=== PATIENT | female | born 1960 ===

== ENCOUNTER 2024-06-29 09:17 | Outpatient (AMB) | payer MEDICARE, MEDICAID, SELFPAY ==
--- NOTE | 2024-06-29 09:31 | PD.ORTHCLVIS ---
Vital signs 06/29/24 09:46 Height 1.47 m Height Method Stated Weight 95.765 kg Weight Measurement Method Standing Scale BMI 44.1 BP 121/73 Blood Pressure Source Automatic Cuff Blood Pressure Location Right Upper Arm Position Sitting Respiration 18 Pulse 75 Pulse Source Monitor Temp 97.5 F Temp Source Temporal Artery Scan Pulse Oximetry (%) 96 Oxygen Delivery Method Room Air Med/Allergies Allergies & Medications Allergies ampicillin Allergy (Verified 06/29/24 09:43) iron Allergy (Verified 06/29/24 09:43) naproxen [From Aleve] Allergy (Verified 06/29/24 09:43) Penicillins Allergy (Verified 06/29/24 09:43) Medication Reconciliation atorvastatin 20 mg tablet 20 mg PO QDAY 06/29/24 [History Confirmed 06/29/24] clopidogrel 75 mg tablet 75 mg PO QDAY 06/29/24 [History Confirmed 06/29/24] famotidine 20 mg tablet 20 mg PO QDAY 06/29/24 [History Confirmed 06/29/24] hydrochlorothiazide 25 mg tablet 25 mg PO QAM 06/29/24 [History Confirmed 06/29/24] lisinopril 40 mg tablet 40 mg PO QDAY 06/29/24 [History Confirmed 06/29/24] semaglutide 1 mg/dose (4 mg/3 mL) subcutaneous pen injector (Ozempic) 1 mg subcut QWEEK 06/29/24 [History Confirmed 06/29/24] sertraline 150 mg capsule 150 mg PO QDAY 06/29/24 [History Confirmed 06/29/24] Subjective Visit Visit for: new patient and knee (BILATERAL) Immunization / Flu Flu Vaccine in the Last 12 Months: Yes Flu Vaccine Exclusion Criteria: Already Received History of Present Illness Chief complaint: BILATERAL KNEE PAIN Date of injury / onset of symptoms: 08/2021 Patient is a pleasant 63-year-old female with bilateral knee pain worse on the left. The pains been ongoing for 2 years. She is tried anti-inflammatories as well as 3 to 4 injections. She reports the injections work about 3 months. She would like new injections today as they have been working Personal History Occupation: [employer] Hobbies: [employer] Pain Pain level (0-10): 6 Pain duration: WITH MOVEMENT Pain location: inside (medial) and outside (lateral) Pain quality: sharp Pain timing: increases with activity Associated signs & symptoms: stiffness Ambulatory data Ambulatory device: none Treatments Improvement with previous injections: No Improvement with PT: No Improvement with NSAIDS: no Review of Systems Review of Systems: All systems negative unless otherwise noted in HPI. Exam Exam Patient is in no acute distress and is cooperative with the examination today. Breathing is nonlabored. In no respiratory distress. Bilateral extremities were evaluated and demonstrates sensation intact to light touch. Palpable pedal pulses are present. No significant edema is present. Bilateral hips were examined. The patient has no pain with log roll of the hips. Internal rotation to 30 degrees and external rotation to 30 degrees is painless. Negative FADIR. The left knee was examined. The left knee is in [varus] alignment. Range of motion from [0-115] degrees. Knee is stable to varus and valgus as well as AP translation with <5mm. Patient has a [negative] Mc[place]rays. There is [no] pain with patellofemoral compression and [no] crepitus noted. The knee is [tender] to palpation [medially]. The right knee was also examined. The right knee is in [varus] alignment. Range of motion from [0-120] degrees. Knee is stable to varus and valgus as well as AP translation with <5mm. Patient has a [negative] Mc[place]rays. There is [no] pain with patellofemoral compression and [no] crepitus noted. The knee is [tender] to palpation [medially]. X-rays demonstrate severe arthritis and joint space narrowing medially. There is complete obliteration of the medial joint space. Assessment and Plan Problem List (1) Degenerative arthritis of knee, bilateral: Status: Acute Plan: Patient is a 63-year-old female with bilateral knee pain and bilateral knee arthritis. She has tried some conservative treatment. She would like to continue with injections. We discussed the weight loss in great detail. Recommend knee cortisone injections as patient would like to proceed with conservative treatment at this time. The risks and benefits of the procedure were reviewed with the patient and patient gave verbal consent to continue with the procedure. Procedure: performed by Dr. Martell Using sterile technique the Bilateral knees were thoroughly prepped with alcohol, and approximately 1 cc of Kenalog 40 mg/mL and 4 cc of 1% lidocaine was injected into each knee without resistance into the medial tibial femoral joint space. The patient tolerated the procedure. Office Procedures GNS Level of Care Nursing/Assessment Patient Status: Initial/New Patient Nursing Assessment/Reassesment: Medication Reconciliation, Update PMH in EMR and Vital Signs Coordination of Care: Complex Care and Chronic Disease 1-5, Education Complex Pt/Fam, Consent,records obtained, informed consent, 1 Ins Authorization, Lab and Imaging orders, Results/Orders obtained and Staff clarify orders New Patient Charge New Patient Point Assignment: 1124 New Patient Point Charge: [employer] Level 4 (3726-0394) Surgical Proc/IM SQ injection Major Surgical Procedure: Yes (BILATERAL KNEE INJECTION) Medication Given Medication Given Medication Given: Yes Documented Dose Given: 8 Route: Infiitration Medication Given Medication Given Medication Given: Yes Documented Dose Given: 1 Route: Infiitration Office Meds Xylocaine 10 mg/mL (1 %) injection solution Performing Provider: Arnol Martell MD Performing Location: [facility] Administered by: Arnol Martell MD on 06/29/24 09:56 Dose Route Admin Location Dispensed Lot Number Expiration Date [facility] Specifications Checker 40 mL Infiltration 40 mL [id number] 04/06/27 59391-693-22 [facility] triamcinolone acetonide 40 mg/mL suspension for injection Performing Provider: Arnol Martell MD Performing Location: [facility] Administered by: Arnol Martell MD on 06/29/24 09:56 Dose Route Admin Location Dispensed Lot Number Expiration Date [facility] Specifications Checker 80 mg Infiltration 2 mL [id number] 03/06/26 [address]-4 [employer] Past Medical History Past Medical History Have you ever been diagnosed with any of the following: Respiratory Problems Smoking: No Smoking Exposure: No
[2024-06-29 09:46] VITALS: BP 121/73; PULSE 75; RESP 18; TEMP 36.4; O2SAT 96; BMI 44.1
== END 2024-06-29 10:06 | disposition home or self-care (01) ==
LOC: HODSRG 09:17
PROVIDERS: PCP Physician Assistant; Referring Provider Physician Assistant; Supervising Provider Orthopaedic Surgery Adult Reconstructive Orthopaedic Surgery; Visit Provider Orthopaedic Surgery Adult Reconstructive Orthopaedic Surgery
DX: M17.0 Bilateral primary osteoarthritis of knee (principal)
CPT/HCPCS: 20610; 99204; J3301; J3490; G0463